=== PATIENT | male | born 1950 | race Caucasian/White ===

== ENCOUNTER 2017-08-29 16:31 | Inpatient (IN) | payer OTHER ==
[~2017-08-29] VITALS: Ht 152.4 cm; Wt 83.9 kg
[~2017-08-29 16:31] MED LIST: ALBUTEROL2.5 MG/32 IH; ASPIRIN EC81 M1 PO; BYSTOLIC 5 MG5 M1; DILTIAZEM ER120 M1 PO; FISH OIL 1,0001 EAC1 PO; LASIX 20 MG TAB20 MG; LOVASTAT20; MEDROLDOSEPACK PO; NIASPAN750 MG; POTASSIUM20; PREDNISONE 20 M20 M1 PO; PROAIR HFA8.5 GM IH; VENTOLIN HFA INH8 GM IH; ZPAK PO
[2017-08-29 16:32] VITALS: BP 148/71
[2017-08-29] MEDS ORDERED: ATORVASTATIN CA40 MG PO (16:42)
[2017-08-29] MEDS ORDERED: QVAR8.7 G1 INH (16:43)
[2017-08-29] MEDS ORDERED: FIBERCON CHEWA625 MG PO (16:44)
[2017-08-29] MEDS ORDERED: CARVEDILOL12.5 MG PO (16:56)
[2017-08-29] MEDS ORDERED: CELEXA20 MG PO (16:56)
[2017-08-29] MEDS ORDERED: LASIX 40 MG TAB40 M2 PO (16:57)
[2017-08-29] MEDS ORDERED: AMARYL2 MG PO (16:58)
[2017-08-29] MEDS ORDERED: GUAIFENESIN ER600 MG PO (16:59)
[2017-08-29] MEDS ORDERED: SYNTHROID50 MCG PO (17:00)
[2017-08-29] MEDS ORDERED: DUONEB 2.5-0.5 M3 ML INH (17:00)
[2017-08-29] MEDS ORDERED: KLOR-CON 1010 MEQ PO (17:01)
[2017-08-29] MEDS ORDERED: GLUCOPHAGE XR500 MG PO (17:01)
[2017-08-29 17:11] LABS: INFLUENZA B ANTIGEN None Detected (None Detect)
[2017-08-29 17:49] LABS: HEMATOCRIT 46.8 % (42.0-52.0); HEMOGLOBIN 15.9 gm/dL (14.0-18.0); MCH 29.5 pg (26.0-34.0); MCHC 34.1 g/dL (28.0-37.0); MCV 86.5 fL (80.0-100.0); MPV 7.8 fl. (7.2-11.1); NUCLEATED RBCS 0 /100WBC; PLATELET COUNT* 241 thou/uL (150-400); WBC 17.2 thou/uL (4.0-11.0)
[2017-08-29 17:58] LABS: APTT 31.7 Seconds (25.0-31.3); INR 1.2; PROTIME 11.6 Seconds (9.20-11.50)
[2017-08-29 18:02] LABS: CALCIUM 8.2 mg/dL (8.5-10.1); CREATININE 2.2 mg/dL (0.6-1.3); POTASSIUM 3.7 mmol/L (3.5-5.1)
[2017-08-29 18:07] LABS: ABSOLUTE BASOPHILS 0.3 thou/uL (0.0-0.2); ABSOLUTE LYMPHOCYTES 1.5 thou/uL (0.8-5.3); ABSOLUTE MONOCYTES 1.7 thou/uL (0.0-1.2); ABSOLUTE NEUTROPHILS 13.6 thou/uL (1.6-8.1); ATYPICAL LYMPHS 7 %
[2017-08-29 18:08] LABS: PLATELET ESTIMATE ADEQUATE
[2017-08-29 18:12] LABS: ALBUMIN 3.2 g/dL (3.4-5.0); MAGNESIUM 1.7 mg/dL (1.8-2.4); TOTAL BILIRUBIN 0.5 mg/dL (<0.1-1.0); TOTAL PROTEIN 7.5 g/dL (6.4-8.2); TROPONIN-I LEVEL 0.2 ng/mL (<0.06)
[2017-08-29 20:30] VITALS: BP 128/61
[2017-08-29 21:00] VITALS: BP 135/75
[2017-08-30] VITALS: BP 138/70
--- NOTE | 2017-08-30 02:40 | NUR ---
PT ADMIT TO ROOM 227 AT 2100. PT ALERT ORIENTED. BREATH SOUNDS WITH LOUD WHEEZING. O2 AT 4 LITERS NC. RT PAGED AND RESPIRATORY TX GIVEN. PT WITH LESS WHEEZING AFTER TX. DR PENA NOTIFIED TO REQUEST ALFREDO HERNÁNDEZ. TELEMETRY SHOWS SR. VOIDS IN URINAL. DENIES PAIN. FAMILY EDUCATED ON WEARING PPE FOR RESPIRATORY ISOLATION. WILL CONTINUE TO MONITOR.
[2017-08-30 04:00] VITALS: BP 141/70
[2017-08-30 05:44] LABS: ABSOLUTE LYMPHOCYTES 0.6 thou/uL (0.8-5.3); ABSOLUTE MONOCYTES 0.4 thou/uL (0.0-1.2); ABSOLUTE NEUTROPHILS 11.9 thou/uL (1.6-8.1); BASOPHILS 0.2 %; HEMATOCRIT 44.1 % (42.0-52.0); HEMOGLOBIN 14.8 gm/dL (14.0-18.0); LYMPHOCYTES 4.8 %; MCH 29.5 pg (26.0-34.0); MCHC 33.6 g/dL (28.0-37.0); MONOCYTES 3.4 %; MPV 8.1 fl. (7.2-11.1); NUCLEATED RBCS 0 /100WBC; PLATELET COUNT* 239 thou/uL (150-400); POLYS 91.6 %; RBC 5.01 mil/uL (4.50-6.00); RDW-CV 14.4 % (10.5-14.5)
[2017-08-30 06:09] LABS: CALCIUM 7.7 mg/dL (8.5-10.1); CREATININE 2.1 mg/dL (0.6-1.3); POTASSIUM 4.4 mmol/L (3.5-5.1)
[2017-08-30 08:00] VITALS: BP 134/80
--- NOTE | 2017-08-30 10:26 | EKG ---
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1950 Requested By: Rigoberto Wood Order Number: [id number] MD: Sidney Walker Measurements Intervals [place] Rate: 70 P: 78 [place]: 200 QRS: 38 QRSD: 87 T: 62 QT: 396 QTc: 428 Interpretive Statements Sinus rhythm nonspecific st changes septal infarct, age indeterminate Compared to ECG 08/14/2012 02:28:33 Myocardial infarct finding now present Sinus bradycardia no longer present Ventricular premature complex(es) no longer present lateral injury pattern no longer seen Electronically Signed On 08-30-2017 10:26:40 GARAGE DOOR SERVICE TECHNICIAN by Sidney Walker [email or web address] <ELECTRONICALLY SIGNED> By: Sidney Walker MD, [facility] 08/30/17 1026 1700 1700 Sidney Walker MD, [facility] /EPI
[2017-08-30 11:43] VITALS: BP 148/80
--- NOTE | 2017-08-30 12:15 | NUR ---
ASSUMED CARE OF PT AT 0730. PT RESTING IN BED. PT A&0X4. DENIES ANY PAIN AND IS REQUESTING BREAKFAST. PT IN DROPLET ISOLATION FOR INFLUENZA A. PT TRACING SR ON THE DEFENSIVE SECONDARY COACH. ON 4L NC SAT 95%. PT DENIES ANY SHORTNESS OF BREATH AT REST. NOTED SHORTNESS OF BREATH WITH EXERTION. PT RECEIVING BREATHING TREATMENTS. PRODUCTIVE COUGH NOTED. SPUTUM NOT OBSERVED. PT RECEIVING IV STEROIDS AND ANTIBIOTICS. PT STANDS TO VOID PER URINAL. PT TO HAVE CXR THIS AM. AM ASSESSMENT CHARTED. MEDICATIONS PER SEP. PT REPOSITIONS SELF IN BED WITH REMINDERS. HOURLY ROUNDING OBSERVED. BED IN LOW POSITION. FALL PRECAUTIONS IN PLACE. CALL LIGHT WITHIN REACH. WILL CONTINUE PLAN OF CARE.
--- NOTE | 2017-08-30 14:00 | NUR ---
MET WITH PT TO DISCUSS HOME SITUATION/DC PLANNING. PT LIVES WITH . SHE USES NEBULIZER, OTHERWISE INDEPENDENT AND ACTIVE. HE DOESN'T DRIVE ANYMORE, BUT ABLE TO MANAGE OWN ADLS. ASSISTS WITH HOUSEHOLD DUTIES AND DRIVES. PT DENIES ANY DC NEEDS AT THIS TIME, PLANS TO RETURN HOME AT DC. WILL FOLLOW
[2017-08-30 15:43] VITALS: BP 129/75
--- NOTE | 2017-08-30 18:08 | NUR ---
NO ACUTE CHANGES THROUGHOUT SHIFT. REFER TO CHARTING. PT TITRATED TO 3L NC SAT UPPER 90'S. PT SHORT OF BREATH WITH EXERTION. PT TO EDGE OF BED FOR MEALS AND BECAME VERY SHORT OF BREATH. PT RECEIVING BREATHING TREATMENTS AND IV STEROIDS. PT TO HAVE REPEAT CXR IN AM. PT STARTED ON SSI. REFER TO EMAR. IN DROPLET PRECAUTIONS FOR INFLUENZA A. CONTINUES TO TRACE SR ON THE ASPHALT TAR AND GRAVEL ROOFER. PT REPOSITIONS SELF WITH REMINDERS. HOURLY ROUNDING OBSERVED. BED IN LOW POSITION. BED ALARM IN PLACE. FALL PRECAUTIONS IN PLACE. CALL LIGHT WITHIN REACH. WILL CONTINUE PLAN OF CARE.
[2017-08-30 20:00] VITALS: BP 139/68
[2017-08-31 00:16] VITALS: BP 137/71
[2017-08-31 04:12] VITALS: BP 149/70
--- NOTE | 2017-08-31 04:27 | NUR ---
ASSUMED CARE OF PT AT 1930, NURSING ASSESSMENT COMPLETED AT START OF SHIFT, PT VOICED NO CONCERNS, PT ON TELE MONITOR TRACING SINUS RHYTHM/SINUS BRADICARDIA THIS SHIFT, FALL PRECAUTIONS IN PLACE, HOURLY ROUNDING COMPLETED, PT CONTINUES ON DROPLET PRECAUTIONS FOR FLU, CALL LIGHT REMAINS WITHIN REACH. NO FALLS THIS SHIFT.
[2017-08-31 05:21] LABS: HEMOGLOBIN 14.1 gm/dL (14.0-18.0)
[2017-08-31 05:24] LABS: HEMATOCRIT 41.6 % (42.0-52.0); MCH 29.8 pg (26.0-34.0); MCV 87.6 fL (80.0-100.0); NUCLEATED RBCS 0 /100WBC; PLATELET COUNT* 250 thou/uL (150-400); RBC 4.75 mil/uL (4.50-6.00)
[2017-08-31 05:45] LABS: POTASSIUM 4.1 mmol/L (3.5-5.1)
[2017-08-31 07:19] LABS: ABSOLUTE NEUTROPHILS 14.1 thou/uL (1.6-8.1); ANISOCYTOSIS 1+; PLATELET ESTIMATE ADEQUATE; POIKILOCYTOSIS 1+
[2017-08-31 08:00] VITALS: BP 152/80
[2017-08-31 12:00] VITALS: BP 152/75
--- NOTE | 2017-08-31 14:48 | NUR ---
ASSUMED CARES OF PT AT 0700. PT IN BED, BED IN LOW AND LOCKED POSITION. CALL BUTTON AND PERSONAL ITEMS IN PT REACH. PT USES CALL BUTTON APPROPRIATELY. FALL PRECAUTIONS IN PLACE FOR PT SAFETY. PT A&O X4, VEST FINISHER SB, 1DG AVB. VSS ON 3L O2 NC. AFEBRILE, PERRLA, SKIN INTACT, PT UP SBA TO BATHROOM. IV IN RIGHT HAND PATENT TO FLUSH AND IV ABT ARE TOLERATED, NO AVR. LAST BM 08/29/17. HOURLY ROUNDING AND ACCU CHECKS CONTINUE. SOA ON EXERTION, NON PRODUCTIVE COUGH. PT DENIES PAIN AT THIS TIME. PT PROGRESSING TOWARDS GOAL. WILL CONTINUE TO MONITOR PT PROGRESS AND STATUS. LUNGS WHEEZY TO DIMINISHED BILATERALLY. PT COOPERATIVE AND TALKATIVE, FRIENDLY. GOOD APPETITE.
[2017-08-31 15:30] VITALS: BP 100/62
--- NOTE | 2017-08-31 19:06 | NUR ---
BEDSIDE REPORT TO RESET MERCHANDISER FOR CONTINUED CARES. SPOUSE AT BEDSIDE. PT REMAINS STABLE, ALERT, TALKATIVE, SMILING. WATCHING TV AT THIS TIME. BED ALARM ACTIVE. PT PROGRESSING TOWARDS GOAL. IV ABT'S TOLERATED/NO AVR. HOURLY ROUNDING AND ACCU CHECKS COMPLETED. PT UP SBA, LARGE FORMED THIS EVENING SHIFT. ASSESSMENTS/DOCUMENTATION COMPLETED. PT REMAINS ON 3L O2 NC. DENIES PAIN, PT STATES HE FEELS THE BEST HE'S FELT IN A LONG TIME.
[2017-09-01 00:06] VITALS: BP 157/74
[2017-09-01 03:58] VITALS: BP 151/62
[2017-09-01 04:42] LABS: HEMATOCRIT 40.8 % (42.0-52.0); HEMOGLOBIN 13.8 gm/dL (14.0-18.0); MCH 29.5 pg (26.0-34.0); MCHC 33.7 g/dL (28.0-37.0); MCV 87.7 fL (80.0-100.0); MPV 7.8 fl. (7.2-11.1); RBC 4.66 mil/uL (4.50-6.00); WBC 15.8 thou/uL (4.0-11.0)
[2017-09-01 04:51] LABS: ALBUMIN 2.7 g/dL (3.4-5.0); CALCIUM 6.8 mg/dL (8.5-10.1); CREATININE 1.7 mg/dL (0.6-1.3); POTASSIUM 3.9 mmol/L (3.5-5.1); TOTAL BILIRUBIN 0.2 mg/dL (<0.1-1.0)
[2017-09-01 07:30] VITALS: BP 154/78
[2017-09-01] MEDS ORDERED: OSELB75 PO (08:32)
[2017-09-01] MEDS ORDERED: LEVAQUIN 500 M500 M2 PO (08:32)
[2017-09-01] MEDS ORDERED: PREDNISONE 10 M10 MG PO (08:33)
[2017-09-01 12:05] VITALS: BP 139/79
--- NOTE | 2017-09-01 13:17 | NUR ---
RECEIVED PT CARE 0700. PT IS ALERT AND ORIENTED X4. VSS. CARBON CAPTURE POWER PLANT ENGINEER TRACING SB. O2 SAT 96% ON 3L NC. TITRATED TO ROOM AIR. 93% O2 SAT ON ROOM AIR. RESTING/EXERCISE OXIMETRY STUDY COMPLETE AND PATIENT REQUIRES 2L NC WITH ACTIVITY PER RESPIRATORY THERAPY. AM ASSESSMENT CHARTED. MEDS PER MAR. PATIENT UP IN ROOM WITH BATHROOM PRIVILEDGES. GAIT STEADY. PLANNING FOR DC TODAY AFTER OXYGEN SETUP AT HOME. WILL CONTINUE TO MONITOR.
[2017-09-01 13:40] VITALS: BP 139/79
[2017-09-01 15:46] VITALS: BP 138/62
--- NOTE | 2017-09-01 18:46 | NUR ---
RECEIVED DISCHARGE ORDERS PER DR SEPULVEDA. HOME OXYGEN SETUP WITH APRIA AND TANK BROUGHT TO PATIENTS ROOM PRIOR TO DISCHARGE. PATIENT AND HIS SPOUSE WERE EDUCATED ON HOW TO USE THE O2 TANK AND BOTH VERBALIZED UNDERSTANDING THAT HE IS TO WEAR O2 AT 2L BY NC WITH ACTIVITY. NEW SCRIPTS GIVEN WITH MED INFORMATION SHEETS. EDUCATED ON F/U APPT WITH HIS PRIMARY. ALL BELONGINGS ARE PACKED AND LEAVING WITH PATIENT. PATIENT LEAVING VIA WHEELCHAIR ACCOMPANIED BY NURSING STAFF AND HIS SPOUSE.
== END 2017-09-01 17:10 | disposition home or self-care (01) | DRG 177 ==
LOC: M.ERS 16:31 → M.TBA-ER 17:25 → M.2W 17:25 → M.ERS 17:25 → M.2W 21:00
PROVIDERS: Emergency Medicine Emergency Medical Services; Internal Medicine; ADMIT Internal Medicine
DX: J69.0 Pneumonitis due to inhalation of food and vomit (principal); N17.0 Acute kidney failure with tubular necrosis; J96.20 Acute and chronic respiratory failure, unspecified whether with hypoxia or hypercapnia; N17.9 Acute kidney failure, unspecified; J44.0 Chronic obstructive pulmonary disease with (acute) lower respiratory infection; J15.6 Pneumonia due to other Gram-negative bacteria; D72.829 Elevated white blood cell count, unspecified; I10 Essential (primary) hypertension; E78.5 Hyperlipidemia, unspecified; E86.0 Dehydration; E11.9 Type 2 diabetes mellitus without complications; J10.08 Influenza due to other identified influenza virus with other specified pneumonia; F32.9 Major depressive disorder, single episode, unspecified; E03.9 Hypothyroidism, unspecified; Z79.899 Other long term (current) drug therapy; Z86.73 Personal history of transient ischemic attack (TIA), and cerebral infarction without residual deficits; Z88.7 Allergy status to serum and vaccine; Z87.891 Personal history of nicotine dependence; Z79.82 Long term (current) use of aspirin

== ENCOUNTER → 2019-06-29 | Outpatient (CLI) | payer OTHER ==
[~2019-06-29] MED LIST changes: +AMARYL2 MG PO; +ATORVASTATIN CA40 MG PO; +CARVEDILOL12.5 MG PO; +CELEXA20 MG PO; +DUONEB 2.5-0.5 M3 ML INH; +FIBERCON CHEWA625 MG PO; +GLUCOPHAGE XR500 MG PO; +GUAIFENESIN ER600 MG PO; +KLOR-CON 1010 MEQ PO; +LASIX 40 MG TAB40 M2 PO; +LEVAQUIN 500 M500 M2 PO; +OSELB75 PO; +PREDNISONE 10 M10 MG PO; +QVAR8.7 G1 INH; +SYNTHROID50 MCG PO
--- NOTE | 2019-06-29 13:28 | 2DMMODE ---
[place] [id number] 2 D/M-MODE ECHOCARDIOGRAM Name: CRISTINE SHAH Room: [facility]#: [id number] Admission: 06/29/19 Attend Phys: Shania Luna Discharge: Date of : 46 Date of Service: 06/29/19 1327 Report #: [id number] THIS REPORT FOR: //name// APPROVED REPORT Study performed: 06/29/2019 10:00:51 EXAM: Comprehensive 2D, Doppler, and color-flow Echocardiogram Patient Location: Out-Patient BSA: 1.82 HR: 64 bpm BP: 130/80 mmHg Other Information Study Quality: Fair Indications Dyspnea 2D Dimensions IVSd: 10.91 (7-11mm) LVOT Diam: 20.69 (18-24mm) LVDd: 51.71 mm PWd: 9.21 (7-11mm) Ascending Ao: 29.22 (22-36mm) LVDs: 29.23 (25-40mm) Aortic Root: 30.67 mm Volumes Left Atrial Volume (Systole) LA ESV Index: 20.80 mL/m2 Aortic Valve AoV Peak Kevin.: 1.38 m/s AO Peak Gr.: 7.58 mmHg LVOT Max P.85 mmHg AO Mean Gr.: 4.05 mmHg LVOT Mean P.26 mmHg LVOT Max V: 0.84 m/s AO V2 VTI: 30.97 cm LVOT Mean V: 0.51 m/s EMILY (VTI): 1.93 cm2 LVOT V1 VTI: 17.79 cm Mitral Valve MV Decel. Time: 169.90 ms MV E Max Kevin.: 0.82 m/s MV PHT: 49.27 ms MVA (PHT): 4.47 cm2 [place] [id number] 2 D/M-MODE ECHOCARDIOGRAM Name: CRISTINE SHAH Room: [facility]#: [id number] Admission: 06/29/19 Attend Phys: Shania Luna Discharge: Date of : 46 Date of Service: 06/29/19 1327 Report #: [id number] TDI E/Lateral E': 6.31 E/Medial E': 7.45 Medial E' Kevin.: 0.11 m/s Lateral E' Kevin.: 0.13 m/s Pulmonary Valve PV Peak Kevin.: 0.82 m/s PV Peak Gr.: 2.68 mmHg Tricuspid Valve RAP Estimate: 5.00 mmHg TR Peak Gr.: 21.01 mmHg RVSP: 26.01 mmHg PA Pressure: 26.01 mmHg Left Ventricle The left ventricle is normal size. There is normal LV segmental wall motion. There is normal left ventricular wall thickness. Left ventricular systolic function is normal. The left ventricular ejection fraction is within the normal range. LVEF is 55-60%. This study is not technically sufficient to allow evaluation of the LV diastolic function. Right Ventricle The right ventricle is normal size. The right ventricular systolic function is normal. Atria The left atrium size is normal. The right atrium size is normal. Aortic Valve Aortic valve is mildly calcified. No aortic regurgitation is present. There is no aortic valvular stenosis. Mitral Valve The mitral valve is normal in structure. Mild mitral regurgitation. No evidence of mitral valve stenosis. Tricuspid Valve The tricuspid valve is normal in structure. Mild tricuspid regurgitation. estimated pa pressure 25 mm Hg Pulmonic Valve The pulmonary valve is normal in structure. Mild pulmonic regurgitation. [place] [address] 2 D/M-MODE ECHOCARDIOGRAM Name: CRISTINE SHHA Room: [facility]#: [id number] Admission: 06/29/19 Attend Phys: Shania Luna Discharge: Date of : 46 Date of Service: 06/29/19 1327 Report #: [id number] The aortic root is normal in size. IVC is normal in size and collapses >50% with inspiration. Pericardium There is no pericardial effusion. <Conclusion> LVEF is 55-60%. Aortic valve is mildly calcified. <ELECTRONICALLY SIGNED> By: Sidney Walker MD, FACC 06/29/191326 26 26 Sidney Walker MD, FACC /INF
== END ==
LOC: M.CRD 09:22
DX: I08.8 Other rheumatic multiple valve diseases (principal); J98.4 Other disorders of lung

== ENCOUNTER 2020-02-19 10:00 | Inpatient (IN) | payer OTHER ==
[~2020-02-19] VITALS: Ht 152.4 cm; Wt 90.3 kg
[~2020-02-19 10:00] MED LIST changes: -QVAR8.7 G1 INH
[2020-02-19 10:07] VITALS: BP 155/92
[2020-02-19 10:28] LABS: ABSOLUTE BASOPHILS 0.1 thou/uL (0.0-0.2); ABSOLUTE EOSINOPHILS 0.3 thou/uL (0.0-0.7); ABSOLUTE LYMPHOCYTES 2.5 thou/uL (0.8-5.3); ABSOLUTE MONOCYTES 1.4 thou/uL (0.0-1.2); ABSOLUTE NEUTROPHILS 9.1 thou/uL (1.6-8.1); BASOPHILS 0.6 %; HEMATOCRIT 42.6 % (42.0-52.0); HEMOGLOBIN 14.7 gm/dL (14.0-18.0); LYMPHOCYTES 18.8 %; MCH 30.7 pg (26.0-34.0); MCHC 34.5 g/dL (28.0-37.0); MONOCYTES 10.2 %; MPV 7.8 fl. (7.2-11.1); NUCLEATED RBCS 0 /100WBC; PLATELET COUNT* 289 thou/uL (150-400); POLYS 68.4 %; RBC 4.79 mil/uL (4.50-6.00); RDW-CV 15.1 % (10.5-14.5); WBC 13.3 thou/uL (4.0-11.0)
[2020-02-19] MEDS ORDERED: CARVEDILOL12.5 MG PO (10:34)
[2020-02-19] MEDS ORDERED: LIPITOR 40 MG T40 M1 PO (10:35)
[2020-02-19] MEDS ORDERED: SYMBICORT80 MCG/4.1 INH (10:35)
[2020-02-19 10:36] LABS: CALCIUM 7.5 mg/dL (8.5-10.1); CREATININE 1.9 mg/dL (0.6-1.3); POTASSIUM 3.5 mmol/L (3.5-5.1)
[2020-02-19] MEDS ORDERED: SYNTHROID75 MCG PO (10:36)
[2020-02-19] MEDS ORDERED: MUCINEX600 MG PO (10:36)
[2020-02-19] MEDS ORDERED: ANORO ELLIPTA1 EACH INH (10:37)
[2020-02-19 10:39] LABS: APTT 28.2 Seconds (25.0-31.3); PROTIME 10.7 Seconds (9.20-11.50)
[2020-02-19 10:46] LABS: ALBUMIN 2.9 g/dL (3.4-5.0); TOTAL BILIRUBIN 0.4 mg/dL (<0.1-1.0); TOTAL PROTEIN 7.1 g/dL (6.4-8.2)
[2020-02-19 15:05] VITALS: BP 135/83
[2020-02-19 15:20] VITALS: BP 125/82
--- NOTE | 2020-02-19 15:52 | EKG ---
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: : 1950 Requested By: Osmin Hernadez Order Number: [id number] MD: Sidney Walker Measurements Intervals [place] Rate: 76 P: SD: QRS: 35 QRSD: 155 T: 79 QT: 453 QTc: 510 Interpretive Statements Atrial flutter with predominant 4:1 AV block Borderline repol abnrm, anterolateral leads Baseline wander in lead(s) V1,V2,V3,V6 Compared to ECG 08/29/2017 17:00:44 Sinus rhythm no longer present Myocardial infarct finding no longer present Electronically Signed On 02-19-2020 15:52:35 CDT by Sidney Walker [email or web address] <ELECTRONICALLY SIGNED> By: Sidney Walker MD, [facility] 02/19/20 1552 1133 1133 Sidney Walker MD, [facility] /EPI
[2020-02-19 20:44] VITALS: BP 130/76
[2020-02-20] VITALS: BP 126/73
[2020-02-20 04:00] VITALS: BP 143/76
[2020-02-20 04:48] LABS: HEMOGLOBIN 14.4 gm/dL (14.0-18.0); MCH 30.4 pg (26.0-34.0); MCHC 34.4 g/dL (28.0-37.0); MCV 88.3 fL (80.0-100.0); MPV 7.4 fl. (7.2-11.1); NUCLEATED RBCS 0 /100WBC; PLATELET COUNT* 309 thou/uL (150-400); RBC 4.76 mil/uL (4.50-6.00); RDW-CV 14.8 % (10.5-14.5); WBC 14.6 thou/uL (4.0-11.0)
[2020-02-20 04:59] LABS: POTASSIUM 3.7 mmol/L (3.5-5.1)
--- NOTE | 2020-02-20 06:02 | NUR ---
PT IS ABLE TO COMMUNICATE HIS NEEDS TO STAFF EFFECTIVELY. HE HAS DENIED THE NEED FOR PAIN MEDICATION UP TO THIS TIME. STILL HAS CONGESTED SOUNDING COUGH BUT DENIES ANY INCREASE IN SOA. HAD MORNING LABS TODAY.
[2020-02-20 08:00] VITALS: BP 135/85
[2020-02-20 08:24] LABS: ABSOLUTE LYMPHOCYTES 0.4 thou/uL (0.8-5.3); ABSOLUTE MONOCYTES 0.4 thou/uL (0.0-1.2); ABSOLUTE NEUTROPHILS 13.7 thou/uL (1.6-8.1); ANISOCYTOSIS Occasional; PLATELET ESTIMATE ADEQUATE
[2020-02-20 10:06] LABS: BE -1.8 mmol/L (-2 to +3); PCO2 44.9 mmHg (35.0-45.0); PO2 98.8 mmHg (75.0-100.0); pH 7.346 (7.340-7.450)
[2020-02-20 12:06] VITALS: BP 134/68
--- NOTE | 2020-02-20 13:53 | NUR ---
ASSUMED CARE OF PATIENT THIS AM AT 0730. PATIENT IS ALERT AND ORIENTED X 4. HE DENIES PAIN. TELE SHOWS AFLUTTER. AUDIBLE EXPIRATORY AND INSPIRATORY WHEEZES NOTED THROUGHT LUNG WOODALL WITH A PRODUCTIVE COUGH. RESPIRATORY TX PER RT. O2 SATS 94 TO 96% ON 3 LITERS. WILL CONTINUE TO MONITOR PATIENT PROGRESS. NO FALLS OR INJURY.
[2020-02-20 16:00] VITALS: BP 127/88
[2020-02-20 20:24] VITALS: BP 125/74
[2020-02-21] VITALS: BP 121/71
[2020-02-21 04:00] VITALS: BP 123/82
[2020-02-21 04:38] LABS: ABSOLUTE LYMPHOCYTES 0.9 thou/uL (0.8-5.3); BASOPHILS 0.1 %; HEMATOCRIT 40.6 % (42.0-52.0); HEMOGLOBIN 13.9 gm/dL (14.0-18.0); LYMPHOCYTES 4.3 %; MCH 30.3 pg (26.0-34.0); MCHC 34.2 g/dL (28.0-37.0); MCV 88.4 fL (80.0-100.0); MONOCYTES 4.8 %; MPV 7.2 fl. (7.2-11.1); NUCLEATED RBCS 0 /100WBC; PLATELET COUNT* 312 thou/uL (150-400); POLYS 90.8 %; RBC 4.59 mil/uL (4.50-6.00); RDW-CV 14.8 % (10.5-14.5); WBC 20.9 thou/uL (4.0-11.0)
--- NOTE | 2020-02-21 05:34 | NUR ---
PT IS ABLE TO COMMUNICATE HIS NEEDS TO STAFF EFFECTIVELY. HE HAS DENIED THE NEED FOR PAIN MEDICATION UP TO THIS TIME. ACHS ACCUCHECKS MAINTAINED. PT'S WOULD LIKE A CALL FROM HOSPITALIST REGARDING HER HUSBANDS PROGRESS.
[2020-02-21 08:00] VITALS: BP 117/73
[2020-02-21] MEDS ORDERED: KEFLEX500 M1 PO (09:04)
[2020-02-21] MEDS ORDERED: PREDNISONE 10 M10 MG PO (09:04)
[2020-02-21 13:49] VITALS: BP 128/81
[2020-02-21] MEDS ORDERED: QVAR REDIHALE10.6 GM INH (13:59)
[2020-02-21 14:31] VITALS: BP 128/81
--- NOTE | 2020-02-21 18:15 | NUR ---
ASSUMED CARE OF PATIENT THIS AM AT 0730. PATIENT IS ALERT AND ORIENTED X 4. HE DENIES PAIN AND DISCOMFORT. DR IN TO ROUND AND PLANS TO DISCHARGE PATIENT TO HOME TODAY. PATIENT IS REQUESTING A PORTABLE OXYGEN MACHINE ON DISCHARGE. DR PENA TALKED WITH PATIENT ABOUT AQUIRING THE MACHINE. CASE MANAGEMENT TO BE NOTIFIED IN AM. TELE MONITOR AND SALINE LOCK DISCONTINUED. PATIENT DISCHARGED TO HOME WITH FAMILY.
== END 2020-02-21 15:50 | disposition home or self-care (01) | DRG 177 ==
LOC: M.ERS 10:00 → M.TBA-ER 12:16 → M.2W 12:16
PROVIDERS: Family Medicine; ADMIT Internal Medicine; ATTEND Internal Medicine
DX: J69.0 Pneumonitis due to inhalation of food and vomit (principal); J96.21 Acute and chronic respiratory failure with hypoxia; J44.1 Chronic obstructive pulmonary disease with (acute) exacerbation; I50.9 Heart failure, unspecified; I11.0 Hypertensive heart disease with heart failure; E78.00 Pure hypercholesterolemia, unspecified; E03.9 Hypothyroidism, unspecified; E11.9 Type 2 diabetes mellitus without complications; Z20.828 Contact with and (suspected) exposure to other viral communicable diseases; Z86.73 Personal history of transient ischemic attack (TIA), and cerebral infarction without residual deficits; Z87.01 Personal history of pneumonia (recurrent); Z79.82 Long term (current) use of aspirin; Z79.899 Other long term (current) drug therapy; Z87.891 Personal history of nicotine dependence; Z82.5 Family history of asthma and other chronic lower respiratory diseases; Z80.3 Family history of malignant neoplasm of breast; Z79.84 Long term (current) use of oral hypoglycemic drugs

== ENCOUNTER 2020-03-15 11:21 | Emergency (ER) | payer OTHER ==
[~2020-03-15] VITALS: Ht 152.4 cm; Wt 83.9 kg
[~2020-03-15 11:21] MED LIST changes: +ANORO ELLIPTA1 EACH INH; +KEFLEX500 M1 PO; +LIPITOR 40 MG T40 M1 PO; +MUCINEX600 MG PO; +QVAR REDIHALE10.6 GM INH; +SYMBICORT80 MCG/4.1 INH; +SYNTHROID75 MCG PO
[2020-03-15 12:30] LABS: ABSOLUTE BASOPHILS 0.1 thou/uL (0.0-0.2); ABSOLUTE EOSINOPHILS 0.3 thou/uL (0.0-0.7); ABSOLUTE LYMPHOCYTES 2.9 thou/uL (0.8-5.3); ABSOLUTE NEUTROPHILS 7.3 thou/uL (1.6-8.1); BASOPHILS 0.8 %; HEMATOCRIT 41.2 % (42.0-52.0); HEMOGLOBIN 14.3 gm/dL (14.0-18.0); LYMPHOCYTES 24.8 %; MCH 30.8 pg (26.0-34.0); MCHC 34.7 g/dL (28.0-37.0); MCV 88.7 fL (80.0-100.0); MONOCYTES 8.5 %; MPV 7.4 fl. (7.2-11.1); NUCLEATED RBCS 0 /100WBC; PLATELET COUNT* 229 thou/uL (150-400); POLYS 62.9 %; RBC 4.65 mil/uL (4.50-6.00); RDW-CV 14.8 % (10.5-14.5); WBC 11.6 thou/uL (4.0-11.0)
[2020-03-15 12:47] LABS: CALCIUM 7.6 mg/dL (8.5-10.1); CREATININE 1.8 mg/dL (0.6-1.3); POTASSIUM 3.7 mmol/L (3.5-5.1)
[2020-03-15 12:52] LABS: ALBUMIN 2.8 g/dL (3.4-5.0); TOTAL BILIRUBIN 0.5 mg/dL (<0.1-1.0); TOTAL PROTEIN 6.4 g/dL (6.4-8.2)
[2020-03-15 13:00] LABS: LIPASE 202 U/L (73-393); NT-PRO BRAIN NAT PEPTIDE 176 pg/mL (<300)
[2020-03-15 13:22] LABS: URINE BILIRUBIN NEGATIVE (Negative); URINE BLOOD NEGATIVE (Negative); URINE CLARITY CLEAR; URINE COLOR YELLOW; URINE GLUCOSE-RANDOM NEGATIVE (Negative); URINE KETONES NEGATIVE (Negative); URINE LEUKOCYTES-REFLEX NEGATIVE (Negative); URINE NITRITE-REFLEX NEGATIVE (Negative); URINE PROTEIN NEGATIVE (Negative); URINE SPECIFIC GRAVITY 1.015 (1.005-1.030)
[2020-03-15] MEDS ORDERED: FLOMAX0.4 MG PO (14:02)
[2020-03-15 14:11] VITALS: BP 139/88
== END 2020-03-15 14:12 | disposition home or self-care (01) ==
LOC: M.ERS 11:21
PROVIDERS: Physician Assistant
DX: R39.11 Hesitancy of micturition (principal); J44.9 Chronic obstructive pulmonary disease, unspecified; Z87.891 Personal history of nicotine dependence; Z79.899 Other long term (current) drug therapy; Z79.82 Long term (current) use of aspirin; Z86.73 Personal history of transient ischemic attack (TIA), and cerebral infarction without residual deficits; Z98.890 Other specified postprocedural states

== ENCOUNTER 2020-08-08 10:22 | Inpatient (IN) | payer OTHER ==
[~2020-08-08] VITALS: Ht 152.4 cm; Wt 81.2 kg
--- NOTE | ~2020-08-08 | CON ---
[address] [address] CONSULTATION Name: CRISTINE SHAH Room: [address] IN M.R.#: [id number] Admission: 08/08/20 Attend Phys: Rick Santamaria MD Discharge: Date of : 46 Report #: [id number] THIS REPORT FOR: cc: Ravindra Stack Steve T. DO ~ Dada Arciniega MD DATE OF SERVICE: 08/09/2020 REQUESTING PHYSICIAN: Dr. Avitia REASON FOR CONSULTATION: Acute kidney injury on top of the chronic kidney disease. HISTORY OF PRESENT ILLNESS: The patient is a 70-year-old gentleman, with medical history significant for diabetes mellitus type 2, COPD, BPH, chronic kidney disease stage 3 with creatinine around 1.8-1.9, cardiomyopathy and chronic lower extremity edema, presents to the hospital with complaints of increased lower extremity edema and some shortness of breath. His COVID status is pending. His chest x-ray reviewed, some mild pulmonary congestion. His renal ultrasound showed smaller right kidney, but otherwise unremarkable, bladder demonstrates presence of debris. MEDICATIONS: Reviewed. From my standpoint, he was on metformin and Lasix at home. FAMILY HISTORY: Noncontributory. SOCIAL HISTORY: His passed last week unfortunately. He has been grieving the loss of his . PHYSICAL EXAMINATION: Exam was performed from a distance because COVID status is pending. LABORATORY DATA: Significant for white count of 12.1, BUN 37, creatinine 2.7, creatinine yesterday was 3.1. ASSESSMENT: 1. Pulmonary congestion on chest x-ray, likely some water retention. Pneumonia is also possible. 2. Chronic obstructive pulmonary disease. 3. Acute kidney injury on top of the chronic kidney disease. 4. Diabetes mellitus type 2. 5. Benign [place] [address] CONSULTATION Name: CRISTINE SHAH Room: [address] IN [facility]#: [id number] Admission: 08/08/20 Attend Phys: Rick Santamaria MD Discharge: Date of : 46 Report #: [id number] PLAN: 1. IV Lasix. 2. Strict I's and O's. 3. Place Wisdom catheter. 4. May consider Urology to look at him due to the debris in his bladder. Discussed with Dr. Avitia. By: 1040 1358Atamera Arciniega MD /PMT
[~2020-08-08 10:22] MED LIST changes: +FLOMAX0.4 MG PO; +GLUCOPHAGE XR500 M1 PO; -GLUCOPHAGE XR500 MG PO; -GUAIFENESIN ER600 MG PO; +MUCUS ER600 M1 PO
[2020-08-08 10:30] VITALS: BP 134/59
[2020-08-08 10:50] LABS: ABSOLUTE BASOPHILS 0.1 thou/uL (0.0-0.2); ABSOLUTE EOSINOPHILS 0.7 thou/uL (0.0-0.7); ABSOLUTE LYMPHOCYTES 2.4 thou/uL (0.8-5.3); ABSOLUTE MONOCYTES 1.4 thou/uL (0.0-1.2); ABSOLUTE NEUTROPHILS 7.5 thou/uL (1.6-8.1); BASOPHILS 0.7 %; EOSINOPHILS 5.7 %; HEMATOCRIT 32.8 % (42.0-52.0); HEMOGLOBIN 10.5 gm/dL (14.0-18.0); LYMPHOCYTES 20.1 %; MCHC 32.2 g/dL (28.0-37.0); MCV 86.9 fL (80.0-100.0); MONOCYTES 11.4 %; MPV 6.8 fl. (7.2-11.1); NUCLEATED RBCS 0 /100WBC; PLATELET COUNT* 276 thou/uL (150-400); POLYS 62.1 %; RBC 3.77 mil/uL (4.50-6.00); RDW-CV 15.9 % (10.5-14.5); WBC 12.1 thou/uL (4.0-11.0)
[2020-08-08 11:02] LABS: CALCIUM 7.8 mg/dL (8.5-10.1); CREATININE 3.1 mg/dL (0.6-1.3); POTASSIUM 5.9 mmol/L (3.5-5.1)
[2020-08-08 11:08] LABS: APTT 27.2 Seconds (25.0-31.3); INR 1.1
[2020-08-08 11:12] LABS: ALBUMIN 3.1 g/dL (3.4-5.0); MAGNESIUM 1.9 mg/dL (1.8-2.4); TOTAL BILIRUBIN 0.4 mg/dL (<0.1-1.0); TOTAL PROTEIN 7.1 g/dL (6.4-8.2)
[2020-08-08 14:28] LABS: CALCIUM 8.3 mg/dL (8.5-10.1); CREATININE 3.1 mg/dL (0.6-1.3); POTASSIUM 4.8 mmol/L (3.5-5.1)
--- NOTE | 2020-08-08 14:46 | EKG ---
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 : 1950 Requested By: Rigoberto Wood Order Number: [id number] MD: Sidney Walker Measurements Intervals [place] Rate: 51 P: 19 MT: 96 QRS: 49 QRSD: 263 T: 98 QT: 463 QTc: 427 Interpretive Statements Sinus bradycardia Short MT interval Nonspecific intraventricular conduction delay Borderline repolarization abnormality Compared to ECG 02/19/2020 11:33:11 Atrial flutter no longer present Electronically Signed On 08-08-2020 14:46:23 DESIGN QUALITY ENGINEER by Sidney Walker [email or web address] <ELECTRONICALLY SIGNED> By: Sidney Walker MD, [facility] 08/08/20 1446 1028 1028 Sidney Walker MD, [facility] /EPI
[2020-08-08 15:14] VITALS: BP 112/74
[2020-08-08 15:37] VITALS: BP 120/68
[2020-08-08 20:45] VITALS: BP 136/65
[2020-08-09 01:50] VITALS: BP 138/81
[2020-08-09 05:49] VITALS: BP 128/67
[2020-08-09 06:02] LABS: HEMATOCRIT 30.6 % (42.0-52.0); HEMOGLOBIN 10.1 gm/dL (14.0-18.0); MCH 28.7 pg (26.0-34.0); MCHC 33.2 g/dL (28.0-37.0); MCV 86.6 fL (80.0-100.0); MPV 7.2 fl. (7.2-11.1); NUCLEATED RBCS 0 /100WBC; PLATELET COUNT* 252 thou/uL (150-400); RBC 3.53 mil/uL (4.50-6.00); RDW-CV 15.8 % (10.5-14.5); WBC 10.8 thou/uL (4.0-11.0)
[2020-08-09 06:10] LABS: CALCIUM 8.2 mg/dL (8.5-10.1); CREATININE 2.7 mg/dL (0.6-1.3); POTASSIUM 4.3 mmol/L (3.5-5.1)
[2020-08-09 07:30] LABS: ABSOLUTE LYMPHOCYTES 0.8 thou/uL (0.8-5.3)
[2020-08-09 07:31] LABS: BURR CELLS 1+; PLATELET ESTIMATE ADEQUATE; POIKILOCYTOSIS 1+
[2020-08-09 07:32] LABS: HYPOCHROMASIA 2+
[2020-08-09 09:00] VITALS: BP 198/92
[2020-08-09 12:00] VITALS: BP 130/64
--- NOTE | 2020-08-09 15:05 | EKG ---
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: VICTORIANO : 1950 Requested By: Charoltte Avitia Order Number: [id number] MD: Sidney Walker Measurements Intervals [place] Rate: 128 P: NE: QRS: 36 QRSD: 78 T: QT: 317 QTc: 463 Interpretive Statements Atrial fibrillation Low voltage, extremity and precordial leads Repol abnrm suggests ischemia, diffuse leads Baseline wander in lead(s) V2,V4 Compared to ECG 08/08/2020 10:28:46 Possible ischemia now present Sinus bradycardia no longer present Electronically Signed On 08-09-2020 15:04:49 ADMINISTRATIVE APPEALS TRIBUNAL MEMBER by Sidney Walker [email or web address] <ELECTRONICALLY SIGNED> By: Sidney Walker MD, [facility] 08/09/20 1504 1118 1118 Sidney Walker MD, [facility] /EPI
[2020-08-09 20:10] VITALS: BP 134/69
[2020-08-10 00:09] VITALS: BP 136/77
[2020-08-10 04:45] VITALS: BP 147/83
[2020-08-10 06:14] LABS: HEMATOCRIT 30.5 % (42.0-52.0); HEMOGLOBIN 9.9 gm/dL (14.0-18.0); MCHC 32.4 g/dL (28.0-37.0); MCV 86.6 fL (80.0-100.0); MPV 6.8 fl. (7.2-11.1); RBC 3.52 mil/uL (4.50-6.00); RDW-CV 15.9 % (10.5-14.5); WBC 20.5 thou/uL (4.0-11.0)
[2020-08-10 06:28] LABS: CALCIUM 7.9 mg/dL (8.5-10.1); CREATININE 2.3 mg/dL (0.6-1.3)
[2020-08-10 07:30] VITALS: BP 128/83
[2020-08-10 11:30] VITALS: BP 126/69
[2020-08-10 13:10] LABS: URINE BILIRUBIN NEGATIVE (Negative); URINE BLOOD 3+ (Negative); URINE CLARITY SL CLOUDY; URINE COLOR RED; URINE GLUCOSE-RANDOM NEGATIVE (Negative); URINE KETONES NEGATIVE (Negative); URINE LEUKOCYTES-REFLEX TRACE (Negative); URINE NITRITE-REFLEX NEGATIVE (Negative); URINE PROTEIN 3+ (Negative); URINE SPECIFIC GRAVITY 1.015 (1.005-1.030); URINE UROBILINOGEN 0.2 E.U./dl (0.2-1.0)
[2020-08-10 13:11] LABS: BACTERIA-REFLEX 1-9 Few /HPF (None Seen); CASTS None Seen /LPF (None Seen); CRYSTALS None Seen /LPF (None Seen); MUCUS None Seen strn/LPF (None Seen); SQUAMOUS 0-3 Few /LPF (0-3); URINE RBC >20 Many /HPF (0-2); URINE WBC-REFLEX 0-5 Rare /HPF (0-5)
[2020-08-10 16:41] VITALS: BP 111/63
[2020-08-10 20:10] VITALS: BP 145/78
[2020-08-11] VITALS: BP 126/76
[2020-08-11 04:07] VITALS: BP 124/71
[2020-08-11 04:57] LABS: HEMATOCRIT 30.5 % (42.0-52.0); HEMOGLOBIN 9.9 gm/dL (14.0-18.0); MCH 28.3 pg (26.0-34.0); MCHC 32.3 g/dL (28.0-37.0); MCV 87.5 fL (80.0-100.0); RBC 3.48 mil/uL (4.50-6.00); RDW-CV 16.2 % (10.5-14.5); WBC 11.6 thou/uL (4.0-11.0)
[2020-08-11 05:36] LABS: CALCIUM 7.7 mg/dL (8.5-10.1); CREATININE 1.9 mg/dL (0.6-1.3); POTASSIUM 4.5 mmol/L (3.5-5.1)
[2020-08-11 08:00] VITALS: BP 117/74
[2020-08-11 12:00] VITALS: BP 131/71
--- NOTE | 2020-08-11 15:34 | 2DMMODE ---
[place] [address] 2 D/M-MODE ECHOCARDIOGRAM Name: CRISTINE SHAH Room: [address] IN .R.#: [id number] Admission: 08/08/20 Attend Phys: Rick Santamaria, Discharge: Date of : 46 Date of Service: 08/11/20 1534 Report #: [id number] THIS REPORT FOR: cc: Ravindra Stack Steve T. DO Liston, Michael J. MD [facility] ~ APPROVED REPORT Study performed: 08/11/2020 14:53:29 EXAM: Comprehensive 2D, Doppler, and color-flow Echocardiogram Patient Location: In-Patient Room #: [facility] Status: routine BSA: 1.78 HR: 79 bpm BP: 124/71 mmHg Rhythm: Atrial Fibrillation Other Information Study Quality: Good Indications Congestive Heart Failure Dyspnea covid 2D Dimensions IVSd: 9.38 (7-11mm) LVOT Diam: 20.11 (18-24mm) LVDd: 48.82 mm PWd: 7.63 (7-11mm) Ascending Ao: 33.16 (22-36mm) LVDs: 36.25 (25-40mm) Aortic Root: 32.47 mm Volumes Left Atrial Volume (Systole) LA ESV Index: 38.50 mL/m2 Aortic Valve AoV Peak Kevin.: 1.49 m/s AO Peak Gr.: 8.89 mmHg LVOT Max P.33 mmHg AO Mean Gr.: 4.83 mmHg LVOT Mean P.24 mmHg LVOT Max V: 0.76 m/s AO V2 VTI: 25.12 cm LVOT Mean V: 0.52 m/[place] [address] 2 D/M-MODE ECHOCARDIOGRAM Name: CRISTINE SHAH Room: [address] IN .R.#: [id number] Admission: 08/08/20 Attend Phys: Rick Santamraia, Discharge: Date of : 46 Date of Service: 08/11/20 1534 Report #: [id number] EMILY (VTI): 1.85 cm2 LVOT V1 VTI: 14.60 cm TDI Medial E' Kevin.: 0.12 m/s Lateral E' Kevin.: 0.12 m/s Pulmonary Valve PV Peak Kevin.: 0.94 m/s PV Peak Gr.: 3.50 mmHg Tricuspid Valve RAP Estimate: 5.00 mmHg TR Peak Gr.: 30.12 mmHg RVSP: 35.00 mmHg PA Pressure: 35.00 mmHg Left Ventricle The left ventricle is normal size. There is normal LV segmental wall motion. There is normal left ventricular wall thickness. Left ventricular systolic function is normal. LVEF is 55-60%. This study is not technically sufficient to allow evaluation of the LV diastolic function due to atrial fibrillation. Right Ventricle The right ventricle is normal size. The right ventricular systolic function is normal. Atria Left atrium is mildly dilated. The right atrium size is normal. Aortic Valve Mild aortic valve sclerosis. No aortic regurgitation is present. Mild aortic stenosis. Mitral Valve The mitral valve is normal in structure. There is no mitral valve regurgitation noted. No evidence of mitral valve stenosis. Tricuspid Valve The tricuspid valve is normal in structure. Trace tricuspid regurgitation. Mild pulmonary hypertension. The RVSP is 30-35 mmHg. Pulmonic Valve The pulmonary valve is normal in structure. There is no pulmonic [place] [address] 2 D/M-MODE ECHOCARDIOGRAM Name: CRISTINE SHAH Room: [address] IN [facility]#: [id number] Admission: 08/08/20 Attend Phys: Rick Santamaria, Discharge: Date of : 46 Date of Service: 08/11/20 1534 Report #: [id number] Great Vessels The aortic root is normal in size. IVC is normal in size and collapses >50% with inspiration. Pericardium There is no pericardial effusion. <Conclusion> The left ventricle is normal size. There is normal left ventricular wall thickness. Left ventricular systolic function is normal. This study is not technically sufficient to allow evaluation of the LV diastolic function due to atrial fibrillation. Left atrium is mildly dilated. Mild aortic valve sclerosis. Mild aortic stenosis. Trace tricuspid regurgitation. Mild pulmonary hypertension. The RVSP is 30-35 mmHg. IVC is normal in size and collapses >50% with inspiration. <ELECTRONICALLY SIGNED> By: Chris Spann MD, FACC 08/11/20 1534 1534 1534 Chris Spann MD, FACC /INF
[2020-08-11 16:00] VITALS: BP 126/69
[2020-08-11 20:30] VITALS: BP 129/69
[2020-08-12] VITALS: BP 118/64
[2020-08-12 04:00] VITALS: BP 115/57
[2020-08-12 05:32] LABS: HEMATOCRIT 29.1 % (42.0-52.0); HEMOGLOBIN 9.8 gm/dL (14.0-18.0); MCH 29.1 pg (26.0-34.0); MCHC 33.8 g/dL (28.0-37.0); MCV 85.9 fL (80.0-100.0); RBC 3.39 mil/uL (4.50-6.00); RDW-CV 15.8 % (10.5-14.5); WBC 9.3 thou/uL (4.0-11.0)
[2020-08-12 05:42] LABS: CALCIUM 7.5 mg/dL (8.5-10.1); POTASSIUM 4.3 mmol/L (3.5-5.1)
[2020-08-12 08:16] VITALS: BP 111/71
[2020-08-12 13:08] VITALS: BP 100/53
[2020-08-12 16:52] VITALS: BP 119/62
[2020-08-13] VITALS (8 sets, daily range): BP systolic 114–144; BP diastolic 56–69
[2020-08-13 05:15] LABS: HEMATOCRIT 31.6 % (42.0-52.0); HEMOGLOBIN 10.2 gm/dL (14.0-18.0); MCHC 32.4 g/dL (28.0-37.0); MCV 86.6 fL (80.0-100.0); MPV 7.1 fl. (7.2-11.1); RBC 3.65 mil/uL (4.50-6.00); RDW-CV 16.1 % (10.5-14.5); WBC 13.9 thou/uL (4.0-11.0)
[2020-08-13 05:33] LABS: CALCIUM 7.7 mg/dL (8.5-10.1); CREATININE 1.8 mg/dL (0.6-1.3); POTASSIUM 4.4 mmol/L (3.5-5.1)
[2020-08-13] MEDS ORDERED: FLOMAX0.4 MG PO (09:52)
[2020-08-13] MEDS ORDERED: PROSCAR 5MG TABL5 M1 PO (12:08)
== END 2020-08-13 16:30 | disposition home health service (06) | DRG 871 ==
LOC: M.ERS 10:22 → EDBD 10:22 → M.ORTHSURG 11:43 → M.TBA-ER 11:43 → M.ORTHSURG 15:28
PROVIDERS: Emergency Medicine Emergency Medical Services; Family Medicine; Internal Medicine; Physician Assistant; ADMIT Internal Medicine; ATTEND Internal Medicine
DX: A41.9 Sepsis, unspecified organism (principal); J96.20 Acute and chronic respiratory failure, unspecified whether with hypoxia or hypercapnia; I50.43 Acute on chronic combined systolic (congestive) and diastolic (congestive) heart failure; U07.1 COVID-19; N17.0 Acute kidney failure with tubular necrosis; N17.9 Acute kidney failure, unspecified; L03.115 Cellulitis of right lower limb; I48.20 Chronic atrial fibrillation, unspecified; J44.1 Chronic obstructive pulmonary disease with (acute) exacerbation; G93.40 Encephalopathy, unspecified; T83.83XA Hemorrhage due to genitourinary prosthetic devices, implants and grafts, initial encounter; E87.5 Hyperkalemia; R33.9 Retention of urine, unspecified; N40.0 Benign prostatic hyperplasia without lower urinary tract symptoms; N18.32 Chronic kidney disease, stage 3b; E11.22 Type 2 diabetes mellitus with diabetic chronic kidney disease; Y83.8 Other surgical procedures as the cause of abnormal reaction of the patient, or of later complication, without mention of misadventure at the time of the procedure; N28.1 Cyst of kidney, acquired; Y92.89 Other specified places as the place of occurrence of the external cause; Z87.891 Personal history of nicotine dependence; Z86.73 Personal history of transient ischemic attack (TIA), and cerebral infarction without residual deficits; Z79.82 Long term (current) use of aspirin; Z79.899 Other long term (current) drug therapy; Z79.84 Long term (current) use of oral hypoglycemic drugs; Z88.7 Allergy status to serum and vaccine; R31.0 Gross hematuria

== ENCOUNTER 2020-08-14 00:46 | Emergency (ER) | payer OTHER ==
[~2020-08-14] VITALS: Ht 152.4 cm; Wt 81.7 kg
[~2020-08-14 00:46] MED LIST changes: +PROSCAR 5MG TABL5 M1 PO
[2020-08-14 02:23] VITALS: BP 135/76
== END 2020-08-14 02:23 | disposition home or self-care (01) ==
LOC: M.ERS 00:46
DX: T83.098A Other mechanical complication of other urinary catheter, initial encounter (principal); J44.9 Chronic obstructive pulmonary disease, unspecified; Z87.891 Personal history of nicotine dependence; Z88.7 Allergy status to serum and vaccine; Z87.01 Personal history of pneumonia (recurrent); Y84.8 Other medical procedures as the cause of abnormal reaction of the patient, or of later complication, without mention of misadventure at the time of the procedure; Y92.89 Other specified places as the place of occurrence of the external cause

== ENCOUNTER 2020-08-14 07:57 | Observation (INO) | payer OTHER ==
[~2020-08-14] VITALS: Ht 152.4 cm; Wt 81.2 kg
--- NOTE | ~2020-08-14 | OP ---
[address] [address] OPERATIVE REPORT Name: CRISTINE SHAH Room: [address] M.R.#: [id number] Admission: 08/14/20 Attend Phys: Charlotte Avitia MD Discharge: Date of : 46 Report #: [id number] THIS REPORT FOR: cc: Ravindra Stack Steve T. DO ~ Haggard, Kent L MD DATE OF SERVICE: 08/14/2020 PREOPERATIVE DIAGNOSES: Clot retention and gross hematuria. POSTOPERATIVE DIAGNOSES: Clot retention and gross hematuria. PROCEDURES: Cystoscopy, clot evacuation and fulguration. STAFF SURGEON: Macario Curry MD SUPERVISOR GRIPS: None. ANESTHESIA: General. ESTIMATED BLOOD LOSS: 5 mL. COMPLICATIONS: None. SPECIMEN: None. DRAIN: An 18-Guinean coude tip catheter. INDICATIONS: The patient is a 70-year-old male initially admitted with COVID-19 infection, who developed urinary retention. He has had a long history of voiding difficulty; however, has been able to urinate. He has never seen gross blood in his urine after Wisdom catheter placed, it was the first time he witnessed gross hematuria. He had switched out to a 20-Guinean 3-way Wisdom catheter, was hand irrigated. Clots were removed. The urine was clear with light pink tinge. Yesterday, he was sent home with this catheter, but the irrigation port was not plugged, came back to the Emergency Room. The irrigation port was plugged. He subsequently returned today reporting that there was some leakage of urine around the catheter, hand irrigated, but still noted about 400 mL still in his bladder. Suspect some form of clot impeding flow, elected for definitive cystoscopy with clot evacuation, possible fulguration, possible resection of bladder tumor if present. After the risks and benefits of the procedure explained, an informed consent was obtained. DESCRIPTION OF PROCEDURE: The patient was taken to the operating room, comfortably placed in the dorsal lithotomy position [place] [address] OPERATIVE REPORT Name: CRISTINE SHAH Room: [address] M.R.#: [id number] Admission: 08/14/20 Attend Phys: Charlotte Avitia MD Discharge: Date of : 46 Report #: [id number] anesthesia. He was sterilely prepped and draped in standard fashion exposing only the genitalia. The patient received 2 grams of intravenous Ancef. Appropriate time-out was carried out and all were in agreement. A #21-Guinean cystoscope with 30-degree angle lens was placed in the urethra. Anterior urethra is normal. Sphincter is intact. Prostate showed some bilobar prostatic hyperplasia with visual obstruction and adherent clot about the 12 o'clock position within the bladder neck. There was some organized clot within his bladder, which was irrigated out with a Bertha syringe. Once that organized clot was removed, there was only about 7-10 mL of old clot in bladder. No other issues in the bladder at all. There ____, one little area of bleeding at the 12 o'clock position near the bladder neck. Bugbee electrode set at 40 mckee were used to fulgurate this. Meticulous hemostasis verified. No other bleeding identified. The cystoscope was removed. 18-Guinean coude tip catheter put in place and secured with ____ mL of sterile water, irrigated crystal clear. He tolerated the procedure well. He was extubated ____ and transferred to [facility] with assistance and went to recovery in stable condition. We will still leave the catheter in for a week. He is going home on finasteride and tamsulosin ____ voiding trial. By: 1240 1256Kent Bernarda Curry MD /mirta
[2020-08-14 08:07] VITALS: BP 151/75
[2020-08-14 08:33] LABS: URINE BLOOD 3+ (Negative); URINE CLARITY SL CLOUDY; URINE COLOR YELLOW; URINE GLUCOSE-RANDOM 3+ (Negative); URINE KETONES NEGATIVE (Negative); URINE LEUKOCYTES-REFLEX 1+ (Negative); URINE PROTEIN 2+ (Negative); URINE UROBILINOGEN 0.2 E.U./dl (0.2-1.0)
[2020-08-14 08:34] LABS: ICTOTEST (BILI CONFIRMATORY) Negative (Negative); URINE BILIRUBIN 1+ (Negative); URINE NITRITE-REFLEX POSITIVE (Negative)
[2020-08-14 08:37] LABS: HEMATOCRIT 32.6 % (42.0-52.0); HEMOGLOBIN 10.7 gm/dL (14.0-18.0); MCH 28.2 pg (26.0-34.0); MCHC 32.8 g/dL (28.0-37.0); MPV 7.2 fl. (7.2-11.1); NUCLEATED RBCS 0 /100WBC; PLATELET COUNT* 368 thou/uL (150-400); RDW-CV 15.9 % (10.5-14.5)
[2020-08-14 08:44] LABS: CALCIUM 7.4 mg/dL (8.5-10.1); CREATININE 1.8 mg/dL (0.6-1.3); POTASSIUM 4.6 mmol/L (3.5-5.1)
[2020-08-14 08:45] LABS: URINE RBC >20 Many /HPF (0-2)
[2020-08-14 08:51] LABS: CASTS None Seen /LPF (None Seen); CRYSTALS None Seen /LPF (None Seen); SQUAMOUS NONE SEEN /LPF (0-3)
[2020-08-14 10:06] LABS: ABSOLUTE LYMPHOCYTES 0.7 thou/uL (0.8-5.3); ABSOLUTE MONOCYTES 3.1 thou/uL (0.0-1.2); ABSOLUTE NEUTROPHILS 14.2 thou/uL (1.6-8.1); ANISOCYTOSIS Occasional; BURR CELLS 1+
[2020-08-14 10:07] LABS: PLATELET ESTIMATE ADEQUATE
[2020-08-14 10:59] VITALS: BP 131/65
[2020-08-14 12:51] VITALS: BP 131/65
== END 2020-08-14 13:25 | disposition home or self-care (01) ==
LOC: M.ERS 07:57 → M.TBA-ER 08:47
PROVIDERS: Emergency Medicine Emergency Medical Services; ADMIT Family Medicine; ATTEND Family Medicine
DX: U07.1 COVID-19 (principal); T83.098A Other mechanical complication of other urinary catheter, initial encounter; N40.1 Benign prostatic hyperplasia with lower urinary tract symptoms; R31.0 Gross hematuria; N17.9 Acute kidney failure, unspecified; E11.22 Type 2 diabetes mellitus with diabetic chronic kidney disease; N18.32 Chronic kidney disease, stage 3b; J12.82 Pneumonia due to coronavirus disease 2019; J96.10 Chronic respiratory failure, unspecified whether with hypoxia or hypercapnia; J44.9 Chronic obstructive pulmonary disease, unspecified; Z79.84 Long term (current) use of oral hypoglycemic drugs; Z79.899 Other long term (current) drug therapy

== ENCOUNTER 2021-03-12 13:07 | Emergency (ER) | payer OTHER ==
[~2021-03-12] VITALS: Ht 152.4 cm; Wt 76.7 kg
[2021-03-12 13:39] LABS: ABSOLUTE BASOPHILS 0.1 thou/uL (0.0-0.2); ABSOLUTE EOSINOPHILS 0.2 thou/uL (0.0-0.7); ABSOLUTE LYMPHOCYTES 1.1 thou/uL (0.8-5.3); ABSOLUTE MONOCYTES 1.2 thou/uL (0.0-1.2); ABSOLUTE NEUTROPHILS 6.4 thou/uL (1.6-8.1); EOSINOPHILS 1.8 %; HEMATOCRIT 37.7 % (42.0-52.0); HEMOGLOBIN 12.2 gm/dL (14.0-18.0); LYMPHOCYTES 12.2 %; MCH 26.7 pg (26.0-34.0); MCHC 32.4 g/dL (28.0-37.0); MCV 82.5 fL (80.0-100.0); MONOCYTES 13.1 %; MPV 7.7 fl. (7.2-11.1); NUCLEATED RBCS 0 /100WBC; PLATELET COUNT* 245 thou/uL (150-400); POLYS 71.9 %; RBC 4.57 mil/uL (4.50-6.00); RDW-CV 15.8 % (10.5-14.5); WBC 8.9 thou/uL (4.0-11.0)
[2021-03-12 13:50] LABS: CALCIUM 6.8 mg/dL (8.5-10.1); CREATININE 2.1 mg/dL (0.6-1.3); POTASSIUM 4.5 mmol/L (3.5-5.1)
[2021-03-12 14:05] LABS: ALBUMIN 2.6 g/dL (3.4-5.0); TOTAL BILIRUBIN 0.5 mg/dL (<0.1-1.0); TOTAL PROTEIN 6.5 g/dL (6.4-8.2)
--- NOTE | 2021-03-12 15:44 | EKG ---
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: : 1950 Requested By: Osmin Hernadez Order Number: [id number] MD: Chris Spann Measurements Intervals [place] Rate: 62 P: [place]: QRS: 59 QRSD: 88 T: 56 QT: 481 QTc: 489 Interpretive Statements Atrial fibrillation Low voltage, extremity leads Borderline prolonged QT interval Baseline wander in lead(s) II,III,aVF Compared to ECG 08/09/2020 11:18:31 Early repolarization no longer present Possible ischemia no longer present Electronically Signed On 03-12-2021 15:44:12 CDT by Chris Spann [email or web address] <ELECTRONICALLY SIGNED> By: Chris Spann MD, FACC 03/12/21 1544 1311 1311 Chris Spann MD, FAC /EPI
[2021-03-12 16:30] VITALS: BP 118/59
== END 2021-03-12 16:57 | disposition home or self-care (01) ==
LOC: M.ERS 13:07
PROVIDERS: Family Medicine
DX: U07.1 COVID-19 (principal); J44.9 Chronic obstructive pulmonary disease, unspecified; E16.2 Hypoglycemia, unspecified; Z86.73 Personal history of transient ischemic attack (TIA), and cerebral infarction without residual deficits; Z79.899 Other long term (current) drug therapy; Z98.890 Other specified postprocedural states; Z79.82 Long term (current) use of aspirin; Z87.891 Personal history of nicotine dependence; Z88.7 Allergy status to serum and vaccine